=== PATIENT | female | born 1950 | race Caucasian/White ===

== ENCOUNTER 2023-10-05 13:45 | Outpatient (RCR) | payer MEDICARE, SELFPAY ==
--- NOTE | 2023-07-12 16:58 | ST.OPIE ---
Visit Care Team Role Provider Type María Elena Gold MD Family Provider Non-Staff Primary Care Provider Specialty: Family Practice Address: [address] [place] [address], [place], [address] Email: Oh Mosqueda MD Attending Provider Non-Staff Referring Provider Specialty: Ear, Nose, Throat Address: [address] [place] [address], [address] Email: Speech-Language Pathology Initial Evaluation RECYCLING SPECIALIST Voice Resonance Evaluation Start: 07/12/23 16:31 Freq: Status: Active Protocol: Document 07/12/23 16:32 MA (Rec: 07/12/23 16:58 MA [id number]) Voice and Resonance Assessment Session Time Visit Start Time 15:15 Visit Stop Time 16:00 Total Visit Minutes 45 Visit Information Visit Number Initial Evaluation Plan of Care Dates 07/12/2023-09/10/2023 Insurance Information Medicare Next Note Type Next Note Type Treatment Note Referral Referring Physician Dr. Mosqueda Reason for Referral Dysphonia and Laryngopharyngeal reflux Setting Setting Acute Care Patient History Patient History Pt is a 73 year old female seen this date for voice evaluation d/t hx of vocal hoarseness. She reports she was diagnosed with achalasia in 1975, MS in 1991 and has a hx of migraines. She reports she occasionally has shouted in the past and has to shout for her to hear her d/ t [place], which may be the cause for the hoarsness in combination with the above mentioned diagnoses. She reports the hoarseness has been going on for a couple years and has become a little worse. She saw Dr. 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 Pt reports for the past 6 months her voice has been worse with decrease in volume and decreased projection and a tight quality. She also has a hx of reflux and was prescribed omeprazole, however states she does not take it consistently. She reports she sleeps with her head raised slightly and has cut back on coffee to reduced reflex symptoms. Pt had an otolaryngologic (including laryngeal) exam performed on 06/02/23 with the following impressions: smooth vocal cords without lesions, nodules or assymetry. Mild bowing, good glottic closure. She was educated on vocal hygiene techniques, reflex precautions and continuation of omeprazole during ENT visit. 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 Hearing Hearing Level Normal Previous Therapy Previous Speech-Language Therapy No Oral Motor Assessment Source: [employer] ([employer]). Oral-Motor Eval Completed Yes Oral-Motor Assessment Unremarkable findings. Oromusculature appear WFL. Subjective Subjective Pt reports she would like to minimize her gravely voice. - Laryngeal Performance S/Z Ratio S/Z Ratio 1.3 Functional for Speech Yes Reduced Laryngeal Function Relative to Yes Respiration Voice Handicap Index Function Subtotal 23 Physical Subtotal 31 Emotional Subtotal 24 Total Score 78 Severity Severe (61-120) VHI Comments Z score- 4.63 Maximum Phonation Time MPT Norms: Women (15-25) Men (25-35) Loudness (50-60 dB); Speaking Rate: Oral Reading of Sentences (190 Words Per Minute); Oral Reading of Paragraphs (160-170 WPM); Speaking Rate in Conversation (150-250 WPM) Maximum Phonation Time 8.5 seconds Maximum Phonation Time Reduced Resonance Nasal Resonance Normal Findings Findings Mild-Moderate Impairment Observations 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 Additionally, Pt scored a z score of 4.63 on the VHI-10, indicating severe significant impact on aspects of daily life. Specifically, Pt reports her voice is always worse in the evening, she feels as though she has to strain to produce voice, and her family has difficulty hearing her when she calls them throughout the house. Prognosis Rehabilitation Potential Excellent - Recommendations Treatment Recommended Yes Treatment Frequency/Duration 1x/week for 3 months Therapy Recommendations Voice therapy Short Term Goals STG 1: Pt will identify healthy voice alternatives and ways to promote vocal health in 100% of opportunities. STG 2: Patient will complete vocal exercises (i.e. vocal glides, phonation sustains, diaphragmatic breathing) to improve vocal quality and patient's overall intelligibility of verbal communication. STG 3: Patient will demonstrate knowledge with reflex precautions with 100% accuracy independently. STG 4: Patient will utilize circumlaryngeal massage technique independently with 100% accuracy. Squaring Shear Operator Goals LTG 1: Pt will improve vocal quality with use of vocal hygiene/reflux precautions as well as vocal exercises and relaxation exercises. Patient/Caregiver Education Patient/Family Education Described results of evaluation,Patient Understanding Vocally Abusive Behavior Behavior Rating Alcohol Consumption Frequently Arguing (peers/siblings/other) Never Athletic Activity Yelling Never Caffeine Use Less than a cup a day Smoking Never
--- NOTE | 2023-07-12 16:58 | ST.OPPOC ---
Physical, Occupational & Speech Therapy At [facility] Visit Care Team Role Provider Type María Elena Gold MD Family Provider Non-Staff Primary Care Provider Address: [address] [place] [address], [place], [address] Oh Mosqueda MD Attending Provider Non-Staff Referring Provider Address: [address] [place] [address], [address] Speech Pathology Plan of Care Plan of Care Dates 07/12/2023-09/10/[address] Mosqueda Patient History Pt is a 73 year old female seen this date for voice evaluation d/t hx of vocal hoarseness. She reports she was diagnosed with achalasia in 1975, MS in 1991 and has a hx of migraines. She reports she occasionally has shouted in the past and has to shout for her to hear her d/ t [place], which may be the cause for the hoarsness in combination with the above mentioned diagnoses. She reports the hoarseness has been going on for a couple years and has become a little worse. She saw Dr. 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 Pt reports for the past 6 months her voice has been worse with decrease in volume and decreased projection and a tight quality. She also has a hx of reflux and was prescribed omeprazole, however states she does not take it consistently. She reports she sleeps with her head raised slightly and has cut back on coffee to reduced reflex symptoms. Pt had an otolaryngologic (including laryngeal) exam performed on 06/02/23 with the following impressions: smooth vocal cords without lesions , nodules or assymetry. Mild bowing, good glottic closure. She was educated on vocal hygiene techniques, reflex precautions and continuation of omeprazole during ENT visit. 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 Voice/Resonance Findings Mild-Moderate Impairment Voice/Resonance Prognosis Excellent Voice/Resonance Yes Recommendations Voice/Resonance Treatment 1x/week for 3 months Frequency Therapy Recommendations Voice therapy Short Term Goals STG 1: Pt will identify healthy voice alternatives and ways to promote vocal health in 100% of opportunities. STG 2: Patient will complete vocal exercises (i. e. vocal glides, phonation sustains, diaphragmatic breathing) to improve vocal quality and patient's overall intelligibility of verbal communication. STG 3: Patient will demonstrate knowledge with reflex precautions with 100% accuracy independently. STG 4: Patient will utilize circumlaryngeal massage technique independently with 100% accuracy. Long-Term Goals LTG 1: Pt will improve vocal quality with use of vocal hygiene/reflux precautions as well as vocal exercises and relaxation exercises. Comment: Electronically Signed by: CACHORRO Self 07/12/23 [id number] If you are in agreement with this Plan of Care, please return a signed and dated copy. I have reviewed this Plan of Care and certify that the skilled therapy services above are required to meet the patient?s needs. Physician Signature Date Printed Name and Credentials Clinical Instructor Signature Printed Name and Credentials
--- NOTE | 2023-07-19 13:14 | ST.OPTN ---
Visit Care Team Role Provider Type María Elena Gold MD Family Provider Non-Staff Primary Care Provider Address: [address] [place] [address], [place], [address] Oh Mosqueda MD Attending Provider Non-Staff Referring Provider Address: [facility] Tahira Hdzhumberto [address], [address] INTELLIGENT SYSTEMS ENGINEER Treatment Note INTELLIGENT SYSTEMS ENGINEER Treatment Note Start: 07/19/23 13:09 Freq: Status: Active Protocol: Document 07/19/23 13:09 YURY (Rec: 07/19/23 13:13 YURY [id number]) Speech Pathology Treatment Note Session Time Visit Start Time 10:20 Visit Stop Time 11:00 Total Visit Minutes 40 Visit Information Visit Number 2 Plan of Care Dates 07/12/2023-09/10/2023 Next Note Type Next Note Type Treatment Note General Information Patient History Pt is a 73 year old female seen this date for voice evaluation d/t hx of vocal hoarseness. She reports she was diagnosed with achalasia in 1975, MS in 1991 and has a hx of migraines. She reports she occasionally has shouted in the past and has to shout for her to hear her d/ t [place], which may be the cause for the hoarsness in combination with the above mentioned diagnoses. She reports the hoarseness has been going on for a couple years and has become a little worse. She saw Dr. 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 Pt reports for the past 6 months her voice has been worse with decrease in volume and decreased projection and a tight quality. She also has a hx of reflux and was prescribed omeprazole, however states she does not take it consistently. She reports she sleeps with her head raised slightly and has cut back on coffee to reduced reflex symptoms. Pt had an otolaryngologic (including laryngeal) exam performed on 06/02/23 with the following impressions: smooth vocal cords without lesions, nodules or assymetry. Mild bowing, good glottic closure. She was educated on vocal hygiene techniques, reflex precautions and continuation of omeprazole during ENT visit. 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 Subjective Observations/Patient Presentation Pt arrived early to therapy d/ t ferry schedule, however this justowriter operator was able to see patient early d/t opening in schedule. Objective Skilled Nursing Goals LTG 1: Pt will improve vocal quality with use of vocal hygiene/reflux precautions as well as vocal exercises and relaxation exercises. Assessment Assessment of Improvement Pt reports improvements to voice, however worse in the evenings d/t her being tired. She says she has cut back on 5 cups of coffee a day to 1 cup and is taking omeprazole every day. She is also sleeping with her head slightly raised at night. ST provided educational handouts on vocal hygiene as well as home exercise program. ST reviewed and modeled exercises in voice program, which included neck stretches, circumlaryngeal massage and vocal function exercises. Pt completed neck stretches and circumlaryngeal massage exercise with 100% accuracy. She sustained /ah/ and /ee/ during vocal function exercises for about 7-8 seconds demonstrating increase in hoarse vocal quailty. She completed pitch glide exercises with mod verbal and visual cues. ST recommended Pt completed stretches/exercises 5-10x each/2x per day.
--- NOTE | 2023-07-26 13:44 | ST.OPTN ---
Visit Care Team Role Provider Type María Elena Gold MD Family Provider Non-Staff Primary Care Provider Address: [address] [place] [address], [place], [address] Oh Mosqueda MD Attending Provider Non-Staff Referring Provider Address: [facility] Tahira Hdzhumberto [address], [address] MEDICAL FRONT DESK SPECIALIST Treatment Note MEDICAL FRONT DESK SPECIALIST Treatment Note Start: 07/19/23 13:09 Freq: Status: Active Protocol: Document 07/26/23 13:39 MA (Rec: 07/26/23 13:44 MA [id number]) Speech Pathology Treatment Note Session Time Visit Start Time 12:00 Visit Stop Time 12:35 Total Visit Minutes 35 Visit Information Visit Number 4 Plan of Care Dates 07/12/2023-09/10/2023 Next Note Type Next Note Type Treatment Note General Information Patient History Pt is a 73 year old female seen this date for voice evaluation d/t hx of vocal hoarseness. She reports she was diagnosed with achalasia in 1975, MS in 1991 and has a hx of migraines. She reports she occasionally has shouted in the past and has to shout for her to hear her d/ t [place], which may be the cause for the hoarsness in combination with the above mentioned diagnoses. She reports the hoarseness has been going on for a couple years and has become a little worse. She saw Dr. 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 Pt reports for the past 6 months her voice has been worse with decrease in volume and decreased projection and a tight quality. She also has a hx of reflux and was prescribed omeprazole, however states she does not take it consistently. She reports she sleeps with her head raised slightly and has cut back on coffee to reduced reflex symptoms. Pt had an otolaryngologic (including laryngeal) exam performed on 06/02/23 with the following impressions: smooth vocal cords without lesions, nodules or assymetry. Mild bowing, good glottic closure. She was educated on vocal hygiene techniques, reflex precautions and continuation of omeprazole during ENT visit. 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 Subjective Observations/Patient Presentation Pt arrived on time to therapy. Pt brought in folder labeled Voice Exercise Log Sheets, which included exercise sheets , information and a daily schedule to track completion of exercises. Objective Mcfp Goals LTG 1: Pt will improve vocal quality with use of vocal hygiene/reflux precautions as well as vocal exercises and relaxation exercises. Assessment Assessment of Improvement Pt reports she tried completing her voice exercises everyday, however increased frustration d/t her reporting difficulties hitting higher pitches. ST recommended Pt only reach a comfortable pitch and not push past that limit. Pt completed neck stretches and circumlaryngeal massage exercise with 100% accuracy. She sustained /ah/ and /ee/ during vocal function exercises for time ranging from 5-11 seconds demonstrating increase in hoarse vocal quailty. She benefited from cues to inhale through her nose vs mouth and to take a deep breath d/t increased ability to sustain vowels. She completed pitch glide exercises with mod verbal and visual cues. She benefited from doing the pitch glides exercises together to reduced pitch breaks and choppiness and to create more of a vocal glide. ST recommended Pt completed stretches/exercises 5-10x each /2x per day. ST also recommended therapy be changed to every other week d/t Pt independent with exercises and to check in how she is progressing.
--- NOTE | 2023-08-09 12:39 | ST.OPTN ---
Visit Care Team Role Provider Type María Elena Gold MD Family Provider Non-Staff Primary Care Provider Address: [address] [place] [address], [place], [address] Oh Mosqueda MD Attending Provider Non-Staff Referring Provider Address: [facility] Tahira Tafoya [address], [address] DEICER INSPECTOR ELECTRIC Treatment Note DEICER INSPECTOR ELECTRIC Treatment Note Start: 07/19/23 13:09 Freq: Status: Active Protocol: Document 08/09/23 12:35 MA (Rec: 08/09/23 12:39 MA [id number]) Speech Pathology Treatment Note Session Time Visit Start Time 11:50 Visit Stop Time 12:20 Total Visit Minutes 30 Visit Information Visit Number 5 Plan of Care Dates 07/12/2023-09/10/2023 Setting Treatment Setting Outpatient Care Next Note Type Next Note Type Treatment Note General Information Patient History Pt is a 73 year old female seen this date for voice evaluation d/t hx of vocal hoarseness. She reports she was diagnosed with achalasia in 1975, MS in 1991 and has a hx of migraines. She reports she occasionally has shouted in the past and has to shout for her to hear her d/ t [place], which may be the cause for the hoarsness in combination with the above mentioned diagnoses. She reports the hoarseness has been going on for a couple years and has become a little worse. She saw Dr. 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 Pt reports for the past 6 months her voice has been worse with decrease in volume and decreased projection and a tight quality. She also has a hx of reflux and was prescribed omeprazole, however states she does not take it consistently. She reports she sleeps with her head raised slightly and has cut back on coffee to reduced reflex symptoms. Pt had an otolaryngologic (including laryngeal) exam performed on 06/02/23 with the following impressions: smooth vocal cords without lesions, nodules or assymetry. Mild bowing, good glottic closure. She was educated on vocal hygiene techniques, reflex precautions and continuation of omeprazole during ENT visit. 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 Subjective Observations/Patient Presentation Pt arrived on time to therapy. Pt reports she got COVID last week and is feeling better, however voice appeared more hoarse than normal. She reports she has continued to do her voice exercises and circumlaryngeal massage. Objective Assisted Goals LTG 1: Pt will improve vocal quality with use of vocal hygiene/reflux precautions as well as vocal exercises and relaxation exercises. Treatment Activities Voice exercises Assessment Assessment of Improvement Pt completed neck stretches and circumlaryngeal massage exercise with 100% accuracy. She sustained /ah/ and /ee/ during vocal function exercises for time ranging from 12-14 seconds, which is improvement from last session with 5-11 seconds. She benefited from cues to inhale through her nose vs mouth and to take a deep breath d/t increased ability to sustain vowels. She reports she has observed improvements with sustained phonation task with focusin on inhaling through nose. She completed pitch glide exercises with mod verbal and visual cues. She benefited from doing the pitch glides exercises together to reduced pitch breaks and choppiness and to create more of a vocal glide. ST recommended Pt completed stretches/exercises 5-10x each /2x per day.
--- NOTE | 2023-08-23 12:37 | ST.OPTN ---
Visit Care Team Role Provider Type María Elena Gold MD Family Provider Non-Staff Primary Care Provider Address: [address] [place] [address], [place], [address] Oh Mosqueda MD Attending Provider Non-Staff Referring Provider Address: [facility] Tahira Tafoya [address], [address] FREELANCE PHOTOGRAPHER Treatment Note FREELANCE PHOTOGRAPHER Treatment Note Start: 07/19/23 13:09 Freq: Status: Active Protocol: Document 08/23/23 12:35 MA (Rec: 08/23/23 12:37 MA [id number]) Speech Pathology Treatment Note Session Time Visit Start Time 12:30 Visit Stop Time 12:35 Total Visit Minutes 35 Visit Information Visit Number 6 Plan of Care Dates 07/12/2023-09/10/2023 Setting Treatment Setting Outpatient Care Next Note Type Next Note Type Treatment Note General Information Patient History Pt is a 73 year old female seen this date for voice evaluation d/t hx of vocal hoarseness. She reports she was diagnosed with achalasia in 1975, MS in 1991 and has a hx of migraines. She reports she occasionally has shouted in the past and has to shout for her to hear her d/ t [place], which may be the cause for the hoarsness in combination with the above mentioned diagnoses. She reports the hoarseness has been going on for a couple years and has become a little worse. She saw Dr. 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 Pt reports for the past 6 months her voice has been worse with decrease in volume and decreased projection and a tight quality. She also has a hx of reflux and was prescribed omeprazole, however states she does not take it consistently. She reports she sleeps with her head raised slightly and has cut back on coffee to reduced reflex symptoms. Pt had an otolaryngologic (including laryngeal) exam performed on 06/02/23 with the following impressions: smooth vocal cords without lesions, nodules or assymetry. Mild bowing, good glottic closure. She was educated on vocal hygiene techniques, reflex precautions and continuation of omeprazole during ENT visit. 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 Subjective Observations/Patient Presentation Pt arrived on time to therapy. She reports she has been doing her exercises on and off . Objective Detention Goals LTG 1: Pt will improve vocal quality with use of vocal hygiene/reflux precautions as well as vocal exercises and relaxation exercises. Treatment Activities Voice exercises Assessment Assessment of Improvement Pt completed neck stretches and circumlaryngeal massage exercise with 100% accuracy. She sustained /ah/ and /ee/ during vocal function exercises for time ranging from 9-11 seconds, which is slightly reduced from last session with 12-14 seconds. She benefited from cues to inhale through her nose vs mouth and to take a deep breath d/t increased ability to sustain vowels. She reports she has observed improvements with sustained phonation task with focusing on inhaling through nose. She completed pitch glide exercises with mod verbal and visual cues. She benefited from doing the pitch glides exercises together to reduced pitch breaks and choppiness and to create more of a vocal glide. She states she finds it beneficial to have a visual cue during glide exercises. Pt vocal quality appeared hoarse. ST recommended Pt completed stretches/exercises 5-10x each /2x per day.
--- NOTE | 2023-09-06 12:47 | ST.OPTN ---
Visit Care Team Role Provider Type María Elena Gold MD Family Provider Non-Staff Primary Care Provider Address: [address] [place] [address], [place], [address] Oh Mosqueda MD Attending Provider Non-Staff Referring Provider Address: [facility] Tahira Tafoya [address], [address] STUMMEL SELECTOR Treatment Note STUMMEL SELECTOR Treatment Note Start: 07/19/23 13:09 Freq: Status: Active Protocol: Document 09/06/23 12:06 MA (Rec: 09/06/23 12:46 MA [id number]) Speech Pathology Treatment Note Session Time Visit Start Time 12:00 Visit Stop Time 12:30 Total Visit Minutes 30 Visit Information Visit Number 7 Plan of Care Dates 07/12/2023-09/10/2023 Setting Treatment Setting Outpatient Care Next Note Type Next Note Type Treatment Note General Information Patient History Pt is a 73 year old female seen this date for voice evaluation d/t hx of vocal hoarseness. She reports she was diagnosed with achalasia in 1975, MS in 1991 and has a hx of migraines. She reports she occasionally has shouted in the past and has to shout for her to hear her d/ t [place], which may be the cause for the hoarsness in combination with the above mentioned diagnoses. She reports the hoarseness has been going on for a couple years and has become a little worse. She saw Dr. 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 Pt reports for the past 6 months her voice has been worse with decrease in volume and decreased projection and a tight quality. She also has a hx of reflux and was prescribed omeprazole, however states she does not take it consistently. She reports she sleeps with her head raised slightly and has cut back on coffee to reduced reflex symptoms. Pt had an otolaryngologic (including laryngeal) exam performed on 06/02/23 with the following impressions: smooth vocal cords without lesions, nodules or assymetry. Mild bowing, good glottic closure. She was educated on vocal hygiene techniques, reflex precautions and continuation of omeprazole during ENT visit. 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 Subjective Observations/Patient Presentation Pt arrived on time to therapy. She reports she has been doing her exercises on and off . She track when she has done her exercises utilizing a calendar. Objective Marine Engine Driver Goals LTG 1: Pt will improve vocal quality with use of vocal hygiene/reflux precautions as well as vocal exercises and relaxation exercises. Treatment Activities Voice exercises, diaphragmatic breathing Assessment Assessment of Improvement Pt completed neck stretches and circumlaryngeal massage exercise with 100% accuracy. She sustained /ah/ and /ee/ during vocal function exercises for time ranging from 10-12 seconds, which is about the same from the last session. She benefited from cues to inhale through her nose vs mouth and to take a deep breath d/t increased ability to sustain vowels. She also benefited from watching timer. She reports she has observed improvements with sustained phonation task with focusing on inhaling through nose. She completed pitch glide exercises with mod verbal and visual cues. She benefited from doing the pitch glides exercises together to reduced pitch breaks and choppiness and to create more of a vocal glide. She states she finds it beneficial to have a visual cue during glide exercises. Pt vocal quality appeared hoarse, however reduced from last session. ST educated Pt on diaphragmatic breathing and encouraged Pt to incorporate it into her voice home program. Pt verbalized and demonstrated understanding . ST recommended Pt completed stretches/exercises 5-10x each /2x per day.
--- NOTE | 2023-09-20 12:43 | ST.OPTN ---
Visit Care Team Role Provider Type María Elena Gold MD Family Provider Non-Staff Primary Care Provider Address: [address] [place] [address], [place], [address] Oh Mosqueda MD Attending Provider Non-Staff Referring Provider Address: [facility] Tahira Tafoya [address], [address] ADVERTISING EXECUTIVE Treatment Note ADVERTISING EXECUTIVE Treatment Note Start: 07/19/23 13:09 Freq: Status: Active Protocol: Document 09/20/23 12:40 MA (Rec: 09/20/23 12:43 MA [id number]) Speech Pathology Treatment Note Session Time Visit Start Time 12:00 Visit Stop Time 12:35 Total Visit Minutes 35 Visit Information Visit Number 8 Plan of Care Dates 07/12/2023-09/10/2023 Setting Treatment Setting Outpatient Care Next Note Type Next Note Type Treatment Note General Information Patient History Pt is a 73 year old female seen this date for voice evaluation d/t hx of vocal hoarseness. She reports she was diagnosed with achalasia in 1975, MS in 1991 and has a hx of migraines. She reports she occasionally has shouted in the past and has to shout for her to hear her d/ t [place], which may be the cause for the hoarsness in combination with the above mentioned diagnoses. She reports the hoarseness has been going on for a couple years and has become a little worse. She saw Dr. 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 Pt reports for the past 6 months her voice has been worse with decrease in volume and decreased projection and a tight quality. She also has a hx of reflux and was prescribed omeprazole, however states she does not take it consistently. She reports she sleeps with her head raised slightly and has cut back on coffee to reduced reflex symptoms. Pt had an otolaryngologic (including laryngeal) exam performed on 06/02/23 with the following impressions: smooth vocal cords without lesions, nodules or assymetry. Mild bowing, good glottic closure. She was educated on vocal hygiene techniques, reflex precautions and continuation of omeprazole during ENT visit. 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 Subjective Observations/Patient Presentation Pt arrived on time to therapy. She reports she has been doing her exercises on and off . She tracks when she has done her exercises utilizing a calendar. She reports some frustration with her progress, however states she knows it will take time. Objective Snf Goals LTG 1: Pt will improve vocal quality with use of vocal hygiene/reflux precautions as well as vocal exercises and relaxation exercises. Treatment Activities Voice exercises, diaphragmatic breathing Assessment Assessment of Improvement Pt completed neck stretches and circumlaryngeal massage exercise with 100% accuracy. She sustained /ah/ and /ee/ during vocal function exercises for time ranging from 9-11seconds, which is about the same from the last session. She benefited from cues to inhale through her nose vs mouth and to take a deep diaphragmatic breath d/t increased ability to sustain vowels. She reports she has observed improvements with sustained phonation task with focusing on inhaling through nose. She completed pitch glide exercises with mod verbal and visual cues. She benefited from doing the pitch glides exercises together to reduced pitch breaks and choppiness and to create more of a vocal glide. She states she finds it beneficial to have a visual cue during glide exercises. She demonstrated improvements with pitch glides . Pt vocal quality appeared hoarse, however reduced from last session. ST educated Pt on diaphragmatic breathing and encouraged Pt to incorporate it into her voice home program . Pt verbalized and demonstrated understanding. She reports she is looking into getting her hearing tested. She is also looking into [employer] for [employer] to work on her voice/ singing. ST recommended Pt schedule a f/u with ENT. Pt verbalize understanding. ST recommended Pt completed stretches/exercises 5-10x each /2x per day.
--- NOTE | 2023-10-05 14:29 | ST.OPDS ---
Visit Care Team Role Provider Type María Elena Gold MD Family Provider Non-Staff Primary Care Provider Address: [address] [place] [address], [place], [address] Oh Mosqueda MD Attending Provider Non-Staff Referring Provider Address: [facility] Tahira Tafoya [address], [address] CLINIC ASSISTANT Treatment Note CLINIC ASSISTANT Treatment Note Start: 07/19/23 13:09 Freq: Status: Active Protocol: Document 10/05/23 13:53 MA (Rec: 10/05/23 13:54 MA [id number]) Speech Pathology Treatment Note Session Time Visit Start Time 13:45 Visit Stop Time 14:15 Total Visit Minutes 30 Visit Information Visit Number 9 Plan of Care Dates 07/12/2023-09/10/2023 Setting Treatment Setting Outpatient Care Visit Type Note Type Discharge Summary General Information Patient History Pt is a 73 year old female seen this date for voice evaluation d/t hx of vocal hoarseness. She reports she was diagnosed with achalasia in 1975, MS in 1991 and has a hx of migraines. She reports she occasionally has shouted in the past and has to shout for her to hear her d/ t [place], which may be the cause for the hoarsness in combination with the above mentioned diagnoses. She reports the hoarseness has been going on for a couple years and has become a little worse. She saw Dr. 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 Pt reports for the past 6 months her voice has been worse with decrease in volume and decreased projection and a tight quality. She also has a hx of reflux and was prescribed omeprazole, however states she does not take it consistently. She reports she sleeps with her head raised slightly and has cut back on coffee to reduced reflex symptoms. Pt had an otolaryngologic (including laryngeal) exam performed on 06/02/23 with the following impressions: smooth vocal cords without lesions, nodules or assymetry. Mild bowing, good glottic closure. She was educated on vocal hygiene techniques, reflex precautions and continuation of omeprazole during ENT visit. 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 Subjective Observations/Patient Presentation Pt arrived on time to therapy. She reports she has been doing her exercises on and off . She tracks when she has done her exercises utilizing a calendar. She reports some frustration with her progress, however states she knows it will take time. Objective Short Term Goals STG 1: Pt will identify healthy voice alternatives and ways to promote vocal health in 100% of opportunities.- MET STG 2: Patient will complete vocal exercises (i. e. vocal glides, phonation sustains, diaphragmatic breathing) to improve vocal quality and patient's overall intelligibility of verbal communication.- MET STG 3: Patient will demonstrate knowledge with reflex precautions with 100% accuracy independently. - MET Snf Goals LTG 1: Pt will improve vocal quality with use of vocal hygiene/reflux precautions as well as vocal exercises and relaxation exercises. Treatment Activities Voice exercises, diaphragmatic breathing, discharge recommendations Assessment Patient Response to Treatment Excellent Rehab Potential Excellent Impairments Identified Voice Progress Towards Goals Goals Met,Appropriate for Discharge Assessment of Overall Progress Improving Assessment of Improvement Pt completed neck stretches and circumlaryngeal massage exercise with 100% accuracy. She sustained /ah/ and /ee/ during vocal function exercises for time ranging from 9-11seconds. She benefited from cues to inhale through her nose vs mouth and to take a deep diaphragmatic breath d/t increased ability to sustain vowels. She reports she has observed improvements with sustained phonation task with focusing on inhaling through nose. She completed pitch glide exercises with mod verbal and visual cues. She benefited from doing the pitch glides exercises together to reduced pitch breaks and choppiness and to create more of a vocal glide. She states she finds it beneficial to have a visual cue during glide exercises. She demonstrated improvements with pitch glides . Pt vocal quality appeared hoarse, however reduced from last session. She completed diaphragmatic breathing with 100% accuracy. Pt verbalized and demonstrated understanding . She reports she got her hearing tested and is in the process of getting hearing aids. ST facilitated conversation with Pt in regards to discharge plan. Pt reports she is in the process of moving with her to [facility] in March and has been really busy, which makes it difficult for her to get to therapy [place]. Due to patient schedule, meeting her goals and independent with home voice program ST recommends Pt discharge from at this time. ST recommended Pt schedule a f/u with ENT. Pt verbalized understanding. ST recommended Pt completed stretches/exercises 5-10x each /2x per day. ST also recommends Pt find a speech therapist after she moves if voice issues persist. Reviewed with Patient Goals Patient/Caregiver Understanding Excellent Plan Frequency of Treatment No Further Therapy Therapeutic Contents Voice Training Provided Patient/Caregiver Instruction Home Exercise Program,Plan of Care,Questions/Concerns Therapy Recommendations Discharge from Speech Therapy
== END 2023-10-06 13:53 ==
LOC: SP 13:45
PROVIDERS: Family Provider Specialist; PCP Specialist; Referring Provider Specialist; Visit Provider Specialist
DX: K21.9 Gastro-esophageal reflux disease without esophagitis (principal)
CPT/HCPCS: 92507; 92523